=== PATIENT | female | born 1995 | race Caucasian/White ===

== ENCOUNTER → 2019-02-14 | Outpatient (CLI) | payer BC ==
--- NOTE | 2019-02-14 11:38 | NUR ---
Pt, Isa Figueroa, presents for outpatient consult with 3 week old baby boy, Abdi Figueroa, to be evaluated for tongue tie. Abdi was born at home with a bone worker, Zahra Dewitt, and pt states his weight was 8#11oz. His weight at about 3 days of age was reported to be 8#1oz. Pt states her milk arrived WNL, that she had some engorgement she pumped for, but Abdi has been exclusively breastfed. Pt reports he has feeds every 1.5 to 3.5 hours, and at least 8 total per day. His voids are reported as 8 and stools as 4-6, which are yellow, per day. Regarding breastfeed, pt states she had some pain when establishing but it improved, but recently she is a little sore again. She also states has had an area of the left breast that has been firm, likely a plugged milk duct. Her primary concern is that Abdi pops on and off during feed, and he has clicking at times; these are new concerns. Abdi weighs 9#7.4oz (4306 gms) at this consult. Initial latch is shallow, pt instructed on compression of the areola to get more into baby's mouth. Once he is latched better pt states it is more comfortable. When milk starts to let down Abdi does have some clicking noises and backs off the breast. Discussed with pt how let-down works and that this seems to be the issue as he has the ability to move his tongue well. The sublingual frenulum does not appear to be restrictive, and although the top lip frenulum is somewhat thick, his lip rolls out easily and and stays out once latched well. After Abdi has a weight gain of 3.5oz. He had two yellow, seedy stools and a void during the feeding. Discussed use of heat and massage if she feels a plugged milk duct, but LC unable to palpate one at this time. POC: Continue on demand. Use a more reclined position to help with milk flow, compress the areola to help get and keep a deeper latch. F/U: Abdi has an appointment with Dr. Navarro this afternoon. Can contact this LC as needed for concerns. Questions invited and answered.
== END ==
LOC: LAC 10:48
DX: Z39.1 Encounter for care and examination of lactating mother (principal); Z71.89 Other specified counseling